=== PATIENT | male | born 1945 ===

== ENCOUNTER 2017-02-19 11:51 | Emergency (ER) | payer MEDICARE ==
--- NOTE | 2017-02-19 12:41 | UC ---
Skin Complaint HPI - HPI Summary HPI Summary: Was outside on 02/12, spent time in a field. The next day noticed itchy area on L anterior thigh. Since then has had new patching showing up on legs, trunk, and R arm. Very itchy and some parts are weeping. - History of Current Complaint Chief Complaint: UCRash Time Seen by Provider: 02/19/17 12:21 Stated Complaint: RASH Hx Obtained From: Patient Onset/Duration: Gradual Onset, Lasting Days Skin Exposure Onset/Duration: Days Ago Timing: Constant Onset Severity: Mild Current Severity: Moderate Location: Discrete Character: Swelling, Pruritus, Redness Aggravating: Touch Alleviating: Cold Compresses Associated Signs & Symptoms: Positive: Rash - Allergy/Home Medications Allergies/Adverse Reactions: Allergies Allergy/AdvReac Type Severity Reaction Status Date / Time No Known Allergies Allergy Verified 02/19/17 11:58 Review of Systems Constitutional: Negative Skin: Rash Eyes: Negative ENT: Negative Respiratory: Negative Cardiovascular: Negative Gastrointestinal: Negative Genitourinary: Negative Motor: Negative Neurovascular: Negative Musculoskeletal: Negative Neurological: Negative Psychological: Negative All Other Systems Reviewed And Are Negative: Yes PMH/Surg Hx/FS Hx/Imm Hx Other Cancer History: bladder CA - Surgical History Surgical History: Yes Surgery Procedure, Year, and Place: radical protectomy. knee - Family History Known Family History: Positive: Hypertension - Social History Lives: With Family Alcohol Use: Occasionally Substance Use Type: None Smoking Status (MU): Never Smoked Tobacco Physical Exam Triage Information Reviewed: Yes Appearance: Well-Appearing, No Pain Distress, Well-Nourished Vital Signs: Initial Vital Signs Temp 97.6 F 02/19/17 11:53 Pulse 70 02/19/17 11:53 Resp 20 02/19/17 11:53 BP 131/84 02/19/17 11:53 Pulse Ox 100 02/19/17 11:53 Vital Signs Reviewed: Yes Eye Exam: Normal Eyes: Positive: Conjunctiva Clear ENT Exam: Normal ENT: Positive: Normal ENT inspection, Hearing grossly normal, Pharynx normal, TMs normal Dental Exam: Normal Neck exam: Normal Neck: Positive: Supple, Nontender, No Lymphadenopathy Respiratory Exam: Normal Respiratory: Positive: Chest non-tender, Lungs clear, Normal breath sounds, No respiratory distress, No accessory muscle use Cardiovascular Exam: Normal Cardiovascular: Positive: RRR, No Murmur Musculoskeletal Exam: Normal Neurological Exam: Normal Neurological: Positive: Alert Psychological Exam: Normal Skin Exam: Other - widespread, irreg red raised patches on bilat legs, trunk, R arm, some with weeping. Course/Dx - Diagnoses Provider Diagnoses: contact dermatitis Discharge - Discharge Plan Condition: Stable Disposition: HOME Prescriptions: predniSONE TAB* [Deltasone TAB*] 10 mg PO DAILY #39 tab Patient Education Materials: Contact Dermatitis (ED) Additional Instructions: You can use cool soaks and diphenhydramine (benadryl) 25-50mg 4 times per day as needed for itching. The steroid should bring your symptoms down quickly; it is fine to stop the medication when you feel you have had adequate relief.
== END 2017-02-19 12:48 | disposition home or self-care (01) ==
LOC: UCEAST 11:51
DX: L25.9 Unspecified contact dermatitis, unspecified cause (principal)
CPT/HCPCS: 99202; G0463